=== PATIENT | female | born 1965 | race Caucasian/White ===

== ENCOUNTER 2017-12-27 12:07 | Outpatient (CLI) | payer BC | END 2017-12-27 12:08 | disposition home or self-care (01) | LOC: BICMAMMO 12:07 | PROVIDERS: ATTEND Obstetrics & Gynecology | DX: Z12.31 Encounter for screening mammogram for malignant neoplasm of breast (principal); N64.89 Other specified disorders of breast | CPT/HCPCS: 77063; 77067 ==

== ENCOUNTER 2018-01-01 12:59 | Outpatient (CLI) | payer BC | END 2018-01-01 13:00 | disposition home or self-care (01) | LOC: BICMAMMO 12:59 | PROVIDERS: ATTEND Obstetrics & Gynecology | DX: R92.8 Other abnormal and inconclusive findings on diagnostic imaging of breast (principal) | CPT/HCPCS: G0279 ==

== ENCOUNTER 2018-04-22 10:30 | Outpatient (CLI) | payer BC ==
[2018-04-22] MEDS ORDERED: ISOVUE-370 76%-LOCM 1 ML ONE (12:01)
--- NOTE | 2018-04-22 14:20 | CT ---
CT ANGIOGRAM RIGHT AND LEFT LOWER EXTREMITIES WITH 3D RENDERING: History: 53-year-old female with bilateral leg pain below the level of the knee. Patient is falling. FINDINGS: There is visualization of the right and left external iliac arteries, common femoral, superficial fem oral, and profunda femoral arteries, popliteal arteries as well as the anterior tibial, posterior tib ial and peroneal arteries below the level of the knee. There is no evidence for significant stenosis or occlusive disease. No significant abnormal calcified plaques. There is normal appearing trifurcati on and normal appearing three vessel runoff to the ankles bilaterally. IMPRESSION: Unremarkable bilateral lower extremity arterial vascular CT angiogram. No evidence for occlusion or s tenosis or other significant abnormality of bilateral lower extremity runoff POS: [facility]
== END 2018-04-22 10:31 | disposition home or self-care (01) ==
LOC: BICCT 10:30
PROVIDERS: ATTEND Internal Medicine Cardiovascular Disease
DX: M79.662 Pain in left lower leg (principal)

== ENCOUNTER 2021-08-17 15:11 | Outpatient (CLI) | payer BC | END 2021-08-17 15:12 | disposition home or self-care (01) | LOC: ULT 15:11 | PROVIDERS: ATTEND Psychiatry & Neurology Neurology | DX: M79.605 Pain in left leg (principal) | CPT/HCPCS: 72100; 93970 ==

== ENCOUNTER 2022-09-27 13:42 | Outpatient (CLI) | payer BC | END 2022-09-27 13:43 | disposition home or self-care (01) | LOC: BICMAMMO 13:42 | PROVIDERS: ATTEND Obstetrics & Gynecology | DX: N63.20 Unspecified lump in the left breast, unspecified quadrant (principal); R92.8 Other abnormal and inconclusive findings on diagnostic imaging of breast | CPT/HCPCS: 77066; G0279 ==

== ENCOUNTER 2023-03-02 12:53 | Outpatient (CLI) | payer BC | END 2023-03-02 12:54 | disposition home or self-care (01) | LOC: ULT 12:53 | PROVIDERS: ATTEND Internal Medicine | DX: Z51.11 Encounter for antineoplastic chemotherapy (principal); C50.412 Malignant neoplasm of upper-outer quadrant of left female breast; Z79.899 Other long term (current) drug therapy | CPT/HCPCS: 93306 ==